=== PATIENT | male | born 1965 | race Caucasian/White ===

== ENCOUNTER 2023-09-11 14:45 | Emergency (ER) | payer BC, SELFPAY ==
[2023-09-11 14:47] VITALS: BP 130/69
[2023-09-11 15:21] VITALS: BMI 29.4
--- NOTE | 2023-09-11 15:21 | ED.GENMED ---
History of Present Illness
General
Chief Complaint: Cold/Flu/URI Symptoms
Source: patient
Exam Limitations: none
Time Seen by Provider: 09/11/23 15:03
Nursing documentation reviewed up to this point in time: agreed with
Travel History
Have you had any contact with someone who has COVID-19?: No
Do you have any symptoms of coronavirus? Fever > 100 degrees, chills, cough, shortness of breath, sore throat, loss of taste or smell, muscle aches, or headache?: Yes
Symptoms:: cough
History of Present Illness
History of Present Illness:
Patient to ED with complaint of fever, fatigue, cough, burning in chest, wheezing. Symptoms started sunday PM. Reports poor appetite. Brought to ED by spouse for eval. Called PCP this AM for appointment, advised to go to ED.
Past History
Past History
ED Past Medical History: Arrthythmia (A. fib not on Coumadin ), Valvular disease and Other (Prostatitis, Lyme, babesiosis)
ED Past Surgical History: Cardiac (pacemaker, MV ring)
Patient has exhibited threatening behavior?: No
Social History
Tobacco: Former smoker
Alcohol: None
Drug: None
Personal:
Living: with family
Review of Systems
Review of Systems
Allergies reviewed?: Yes
All Other Systems: ROS reviewed and negative except as documented in HPI and ROS
Constitutional: Reports fever, fatigue and chills
EENT: Reports no symptoms
Respiratory: Reports cough and trouble breathing
Cardiac: Reports no symptoms
ABD/GI: Reports no symptoms
: Reports no symptoms
Musculoskeletal: Reports no symptoms
Skin: Reports no symptoms
Neurological: Reports weakness
Psychiatric: Reports no symptoms
Phy Exam
General Physical Exam
General Presentation: well appearing and no apparent distress
General age: appears stated age
General Skin: warm and dry
General Habitus: normal
General Mental: alert
Cardiovascular Exam
Cardiovascular Exam: regular rate/rhythm and no edema
Pulmonary Exam
Pulmonary Exam: no respiratory distress and chest non tender
Breath Sounds: Wheeze: generalized (expiratory wheeze.)
Neurological Exam
Neurological Exam: alert, oriented x3, CN II-XII intact, no motor deficits and no sensory deficits
Musculoskeletal Exam
Musculoskeletal Exam: full ROM and neuro vasc intact
Skin Exam
Skin Exam: normal color, warm/dry and no rash
Psychiatric Exam
Psychiatric Exam: normal mood/affect
Course
Orders/Labs/Results
Orders:
Orders
09/11/23 14:55
COVID-19 Antigen Urgent
Source: Nasal Swab
INF RAPID [Influenza A+B Rapid Molecular] Urgent
[facility] Source: Nasal Swab
Specimen Description:
Date Specimen was Collected: 09/11/23
Time Specimen was Collected: 14:51
RSV [Respiratory Syncytial Virus] Urgent
[facility]NA Source: Nasal Swab
Specimen Description:
Date Specimen was Collected: 09/11/23
Time Specimen was Collected: 14:51
09/11/23 15:14
Ipratropium/Albuterol Sulfate [Duoneb] 3 ml INH R NOW STA
09/11/23 15:15
0.9% Sodium Chloride 1000 ml [Nss] 1,000 ml IV BOLUS
CR Chest - 2 Views Urgent
Comment:
Reason For Exam: SOB, cough
09/11/23 15:26
Complete Blood Count/With Diff Urgent
Comprehensive Metabolic Panel Urgent
09/11/23 15:50
Oseltamivir Phosphate [Tamiflu] 75 mg PO NOW STA
Abnormal Lab Results
09/11/23
15:26
WBC 3.7 L 10^3/uL
(4.8-10.8)
Absolute Lymphs (auto) 0.9 L 10^3/uL
(1.2-3.4)
Immature Gran % 1.1 H %
(0-0.5)
Monocytes % 16.7 H %
(1.7-9.3)
BUN 21 H mg/dl
(9-20)
ALT 54 H U/L
(0-50)
09/11/23 15:26
09/11/23 15:26
Vital Signs
Initial and Last Documented VS:
Initial Vital Signs
Temp Pulse Resp BP Pulse Ox
98.3 F 60 16 130/69 93
09/11/23 14:47 09/11/23 14:47 09/11/23 14:47 09/11/23 14:47 09/11/23 14:47
Last Documented Vital Signs
Temp Pulse Resp BP Pulse Ox
98.3 F 60 16 122/73 97
09/11/23 14:47 09/11/23 14:47 09/11/23 14:47 09/11/23 16:00 09/11/23 16:00
*Radiology
Radiology exam reviewed: preliminary read by ED provider (VIC)
*Pulse Oximetry
Patient hypoxic: no
*Critical Care Note
Total Time (30-74mins, 75-104mins- exclusive of procedures): Not Applicable
ED Attending Note
-
Portions of this chart may have been created with voice recognition software.� Occasional wrong word or��sound alike� substitutions may have occurred due to the inherent limitations of voice recognition software.
Discharge Plan
Departure
Patient Disposition: Home (Routine Discharge)
Date of Disposition: 09/11/23
Time of Disposition: 16:14
Patient with high blood pressure during this ER visit?: No
Condition: Good
Covid-19: Not Applicable
Discharge Problem:
Influenza A
Instructions: Flu, Adult (DC), Fever, Adult (DC)
Prescriptions:
New
oseltamivir [Tamiflu] 75 mg capsule
75 mg PO BID 5 Days Qty: 10 0RF
albuterol sulfate [ProAir HFA] 90 mcg/actuation HFA aerosol inhaler
2 puff inhalation Q4 PRN (Reason: wheezing) Qty: 8.5 0RF
oseltamivir [Tamiflu] 75 mg capsule
75 mg PO Q12H 5 Days Qty: 10 0RF
No Action
multivitamin [Daily Multiple] 1 EACH tablet
1 ea PO DAILY
metoprolol succinate 50 MG tablet extended release 24 hr
50 mg PO DAILY
esomeprazole magnesium [Nexium] 40 MG capsule,delayed release(DR/EC)
40 mg PO DAILY
flecainide 100 MG tablet
150 mg PO HS
Patient Comments:
magnesium oxide 500 MG tablet
250 mg PO BID
dabigatran etexilate [Pradaxa] 150 MG capsule
150 mg PO BID
calcium carbonate [calcium] 500 MG tablet
500 mg PO BID
Rescue 1250
6 tab PO DAILY
niacin [Niaspan Extended-Release] 500 MG tablet extended release 24 hr
500 mg PO DAILY
doxycycline hyclate 100 MG capsule
100 mg PO Q12 Qty: 14 0RF
albuterol sulfate [Proventil HFA] 90 MCG/PUFF HFA aerosol inhaler
1 puff inhalation Q4HPRN PRN (Reason: chest tightness, wheezing) Qty: 1 0RF
qjerozique-vtezynnztijgx-isom [Fioricet] 1 EACH capsule
1 ea PO TIDPRN PRN (Reason: headache) Qty: 14 0RF
acetaminophen-codeine 10 ML solution
10 ml PO Q4HPRN PRN (Reason: severe pain) Qty: 120 0RF
Referrals:
Otis Toney DO [Family Provider] - Follow up in 2-3 days
Activity Restrictions/Additional Instructions:
Return to the emergency department immediately for any changes in/worsening of your symptoms.
Interventions
Interventions:
*Risk Screen - Suicide Last Done: 09/11/23 14:47
*General Assessment Last Done: 09/11/23 14:47
*Neglect/Abuse Screening Last Done: 09/11/23 14:47
ED- Fall Risk Assessment Last Done: 09/11/23 15:29
*ED COVID-19 Vaccine History Last Done: 09/11/23 15:21
*Nursing Disposition Last Done: 09/11/23 16:28
ED- Pulmonary Assessment Last Done: 09/11/23 15:21
Discharge Date and Time
Discharge Date/Time: 09/11/23 16:29
Print Language: [id number]
[2023-09-11 15:23] VITALS: BP 132/75
[2023-09-11] MEDS: DUONEB 3 ML INH (15:23)
[2023-09-11] MEDS: NSS 1000 IV (15:23)
[2023-09-11 15:35] LABS: COVID-19 Antigen Negative (Negative)
[2023-09-11 15:42] LABS: % Basophils 1.1 % (0-2); % Eosinophils 0.5 % (0-6); % Immature Granulocytes 1.1 % (0-0.5); % Lymphocytes 24.8 % (20.5-51.1); % Monocytes 16.7 % (1.7-9.3); % Neutrophils 55.8 % (42.2-75.2); Absolute Lymphocytes 0.9 10^3/uL (1.2-3.4); Absolute Monocytes 0.6 10^3/uL (0.1-0.6); Absolute Neutrophils 2.1 10^3/uL (1.4-6.5); Hematocrit 48.7 % (39.0-52.0); Hemoglobin 16.2 g/dL (13.0-18.0); Mean Corp Hgb Conc. 33.3 g/dL (33.0-37.0); Mean Corpuscular Hgb 30.4 pg (27.0-31.0); Mean Corpuscular Volume 91.4 fL (80.0-94.0); Nucleated Red Blood Cells % 0 % (-); Platelet Count 167 10^3/uL (130-400); Red Blood Cell Count 5.33 10^6/uL (4.70-6.10); Red Cell Dist. Width 12.8 % (11.5-14.5); White Blood Cell Count 3.7 10^3/uL (4.8-10.8)
[2023-09-11] MEDS: TAMIFLU 75 MG PO (15:54)
[2023-09-11 16:00] VITALS: BP 122/73
[2023-09-11 16:00] LABS: ALT (SGPT) 54 U/L (0-50); AST (SGOT) 50 U/L (17-59); Albumin 4.2 g/dl (3.5-5.0); Alkaline Phosphatase 71 U/L (38-126); Blood Urea Nitrogen 21 mg/dl (9-20); Calcium 9.5 mg/dl (8.4-10.2); Carbon Dioxide 29 mmol/L (22-30); Chloride 101 mmol/L (98-107); Estimated Creatinine Clearance 106 ml/min; Glucose 92 mg/dl (70-99); Potassium 4.2 mmol/L (3.5-5.1); Sodium 137 mmol/L (135-145); Total Bilirubin 0.6 mg/dl (0.2-1.3); Total Protein 6.9 g/dl (6.3-8.2); eGFR > 60.00
== END 2023-09-11 16:29 | disposition home or self-care (01) ==
LOC: EMR 14:45
PROVIDERS: Nurse Practitioner; EMERGENCY PHYSICIAN Emergency Medicine; FAMILY PHYSICIAN Family Medicine
DX: J11.1 Influenza due to unidentified influenza virus with other respiratory manifestations (principal)
CPT/HCPCS: 99283; 94640; 96360; 71046; 80053; 85025; 87502; 87807; 87811